=== PATIENT | female | born 1980 | race Caucasian/White ===

== ENCOUNTER → 2018-04-20 | Outpatient (CLI) | payer OTHER ==
--- NOTE | 2018-04-20 12:46 | XR ---
EXAMINATION TYPE: XR tibia fibula LT DATE OF EXAM: 04/20/2018 COMPARISON: NONE HISTORY: 37-year-old female left hendricks contusion, pain TECHNIQUE: 2 views FINDINGS: No acute fracture. Knee and ankle articulations are grossly intact. No significant soft tis doris abnormality. IMPRESSION: No acute osseous abnormality seen.
== END ==
LOC: RADXRMAIN 12:23
PROVIDERS: ATTEND Emergency Medicine
DX: S80.12XA Contusion of left lower leg, initial encounter (principal)